=== PATIENT | female | born 1965 | race Asian ===

== ENCOUNTER → 2021-03-20 | Outpatient (CLI) | payer OTHER | END | disposition home or self-care (01) | LOC: CFH 15:15 | PROVIDERS: ATTEND Nurse Practitioner Family | DX: E04.1 Nontoxic single thyroid nodule (principal); E05.90 Thyrotoxicosis, unspecified without thyrotoxic crisis or storm | CPT/HCPCS: 76536 ==

== ENCOUNTER → 2021-07-29 | Outpatient (CLI) | payer OTHER | END | disposition home or self-care (01) | LOC: CFH 14:39 | PROVIDERS: ATTEND Nurse Practitioner Obstetrics & Gynecology | DX: Z12.31 Encounter for screening mammogram for malignant neoplasm of breast (principal) | CPT/HCPCS: 77063; 77067 ==